=== PATIENT | male | born 1980 | race Two or more races ===

== ENCOUNTER → 2024-02-03 08:21 | Outpatient (REF) | payer BC, SELFPAY ==
[2024-02-03 09:28] LABS: Hematocrit 41.4 % (39.0-52.0); Hemoglobin 13.5 g/dL (13.0-18.0); Mean Corp Hgb Conc. 32.6 g/dL (33.0-37.0); Mean Corpuscular Hgb 26.7 pg (27.0-31.0); Mean Corpuscular Volume 81.8 fL (80.0-94.0); Mean Platelet Volume 10.9 fL (7.4-10.4); Platelet Count 181 10^3/uL (130-400); Red Blood Cell Count 5.06 10^6/uL (4.70-6.10); Red Cell Dist. Width 12.3 % (11.5-14.5)
[2024-02-03 10:49] LABS: ALT (SGPT) 41 U/L (0-50); AST (SGOT) 34 U/L (17-59); Albumin 4.1 g/dl (3.5-5.0); Alkaline Phosphatase 73 U/L (38-126); Direct Bilirubin 0.1 mg/dl (0.0-0.4); HDL Cholesterol 53 mg/dl; LDL Cholesterol, Calculated 103 mg/dl; Total Bilirubin 0.7 mg/dl (0.2-1.3); Total Cholesterol 178 mg/dl (50-199); Total Protein 6.8 g/dl (6.3-8.2); Triglyceride 112 mg/dl (10-149); Very Low Density Lipoprotein 22 mg/dl (0-30)
[2024-02-03 11:06] LABS: PSA, Total - Screen 0.57 ng/ml (0.0-4.0)
[2024-02-03 14:24] LABS: Glycohemoglobin (HgbA1c) 6.1 % (4.0-5.6)
== END ==
LOC: REG 08:21
PROVIDERS: ATTENDING PHYSICIAN Student in an Organized Health Care Education/Training Program
DX: Z00.00 Encounter for general adult medical examination without abnormal findings (principal); Z12.11 Encounter for screening for malignant neoplasm of colon; Z12.12 Encounter for screening for malignant neoplasm of rectum
CPT/HCPCS: 36415; 80061; 80076; 83036; 84443; 85027; G0103

== ENCOUNTER → 2025-02-01 07:07 | Outpatient (REF) | payer BC, SELFPAY ==
[2025-02-01 08:15] LABS: Hematocrit 43.3 % (39.0-52.0); Hemoglobin 13.9 g/dL (13.0-18.0); Mean Corp Hgb Conc. 32.1 g/dL (33.0-37.0); Mean Corpuscular Volume 81.5 fL (80.0-94.0); Platelet Count 201 10^3/uL (130-400); Red Cell Dist. Width 12.0 % (11.5-14.5)
[2025-02-01 09:24] LABS: PSA, Total - Screen 0.62 ng/ml (0.0-4.0); TSH 2.14 uIU/ml (0.47-4.68)
[2025-02-01 09:26] LABS: ALT (SGPT) 35 U/L (0-50); AST (SGOT) 28 U/L (17-59); Albumin 4.4 g/dl (3.5-5.0); Alkaline Phosphatase 69 U/L (38-126); Blood Urea Nitrogen 16 mg/dl (9-20); Calcium 9.0 mg/dl (8.4-10.2); Carbon Dioxide 25 mmol/L (22-30); Chloride 109 mmol/L (98-107); Glucose 99 mg/dl (70-99); HDL Cholesterol 52 mg/dl; LDL Cholesterol, Calculated 107 mg/dl; Potassium 5.1 mmol/L (3.5-5.1); Sodium 140 mmol/L (135-145); Total Protein 7.3 g/dl (6.3-8.2); Very Low Density Lipoprotein 17 mg/dl (0-30); eGFR > 60.00
[2025-02-01 11:06] LABS: Glycohemoglobin (HgbA1c) 6.1 % (4.0-5.6)
== END ==
LOC: REG 07:07
PROVIDERS: ATTENDING PHYSICIAN Student in an Organized Health Care Education/Training Program
DX: Z00.00 Encounter for general adult medical examination without abnormal findings (principal)
CPT/HCPCS: 36415; 80053; 80061; 83036; 84443; 85027; G0103

== ENCOUNTER 2025-05-15 06:19 | Day surgery (SDC) | payer BC, SELFPAY | END 2025-05-15 13:30 | disposition home or self-care (01) | LOC: GI 06:19 | PROVIDERS: ATTENDING PHYSICIAN Internal Medicine | DX: Z12.11 Encounter for screening for malignant neoplasm of colon (principal); K63.5 Polyp of colon | CPT/HCPCS: 45380; 88305 ==